=== PATIENT | male | born 1995 | race Caucasian/White ===

== ENCOUNTER 2019-01-04 13:15 | Emergency (ER) | payer OTHER ==
--- NOTE | 2019-01-04 13:59 | C.PDOC ---
History Of Present Illness 23 y/o male, otherwise well, presents to the ED with complaints of intermittent diffuse abdominal pain for 2 weeks, worse over this weekend. He denies any associated diarrhea, dysuria, fever, chills, neck pain, chest pain, or SOB. Patient does report mild headache and nausea, with no vomiting. He also complains of straining when moving his bowels. Time Seen by Provider: 01/04/19 13:44 Chief Complaint (Nursing): Abdominal Pain History Per: Patient History/Exam Limitations: no limitations Onset/Duration Of Symptoms: Intermittent Episodes Current Symptoms Are (Timing): Still Present Location Of Pain/Discomfort: Diffuse Quality Of Discomfort: "Pain" Associated Symptoms: Nausea Past Medical History Reviewed: Historical Data, Nursing Documentation, Vital Signs Vital Signs: Last Vital Signs Temp 97.8 F 01/04/19 13:21 Pulse 115 H 01/04/19 13:21 Resp 18 01/04/19 13:21 BP 116/77 01/04/19 13:21 Pulse Ox 95 01/04/19 13:21 - Medical History PMH: No Chronic Diseases Surgical History: No Surg Hx Family History: States: Unknown Family Hx - Social History Hx Tobacco Use: No Hx Alcohol Use: No Hx Substance Use: No - Immunization History Hx Tetanus Toxoid Vaccination: No Hx Influenza Vaccination: No Hx Pneumococcal Vaccination: No Review Of Systems Except As Marked, All Systems Reviewed And Found Negative. Constitutional: Negative for: Fever, Chills Cardiovascular: Negative for: Chest Pain Respiratory: Negative for: Shortness of Breath Gastrointestinal: Positive for: Nausea, Abdominal Pain, Constipation. Negative for: Vomiting, Diarrhea Genitourinary: Negative for: Dysuria, Hematuria Musculoskeletal: Negative for: Neck Pain, Back Pain Neurological: Positive for: Headache. Negative for: Weakness, Dizziness Physical Exam - Physical Exam Appears: Non-toxic, No Acute Distress, Other (Awake, Alert, Cooperative) Skin: Warm, Dry, No Rash Head: Atraumatic, Normacephalic Eye(s): bilateral: Normal Inspection, PERRL, EOMI Oral Mucosa: Moist Neck: Normal ROM, Supple Chest: Symmetrical Cardiovascular: Rhythm Regular, No Murmur Respiratory: Normal Breath Sounds, No Accessory Muscle Use Gastrointestinal/Abdominal: Soft, Tenderness (diffuse tenderness), No Distention, No Guarding, No Rebound Back: CVA Tenderness (mild B/L CVA tenderness, right > left), No Vertebral Tenderness Extremity: Bilateral: Atraumatic, Normal Color And Temperature Pulses: Left Radial: Normal, Right Radial: Normal Neurological/Psych: Oriented x3, Normal Speech ED Course And Treatment O2 Sat by Pulse Oximetry: 95 (RA) Pulse Ox Interpretation: Normal - Other Rad Obstructive Series XR X-Ray: Read By Radiologist Interpretation: Accession No. : [id number]. Patient Name / ID : PRINCESS COSTA / [id number]. Exam Date : 01/04/2019 15:04:08 ( Approved ). Study Comment : Sex / Age : M / 23Y. Creator : Sonja Elliott MD. Dictator : Sonja Elliott MD. Lens Silverer : Inspector Line : Sonja Elliott MD. Approver2 : Report Date : 01/04/2019 15:49:40. My Comment : . Date of service: 01/04/2019. PROCEDURE: Radiographs of the chest and abdomen (obstructive series). HISTORY: pain X 2 weeks. COMPARISON: No prior. TECHNIQUE: AP radiograph of the chest, with upright and supine radiographs of the abdomen. FINDINGS: CHEST: Lungs: The lungs are well inflated and clear. Cardiovascular: Normal size heart. No pulmonary vascular congestion. No aortic atherosclerotic calcification present. Pleura: No pleural fluid. No pneumothorax. Other findings: None. ABDOMEN AND PELVIS: Bowel: There is moderate amount of stool in the colon and large amount of stool in the rectum. Bowel gas pattern is non obstructive. Free air: None. Bones: Unremarkable. Other findings: None. IMPRESSION: Constipation. Nonobstructive bowel gas pattern. Clear lungs. Medical Decision Making Medical Decision Making: Impression: Abdominal pain, Nausea, Constipation Initial Plan: - Labs - Obstructive series x-ray - 1 L IV fluids - 4 mg IV zofran - 20 mg IV pepcid - 30 ml PO maalox - 1 tab PO - Reassess Progress: Labs reviewed. Imaging shows constipation. Patient counseled regarding results and plan for discharge home. Disposition - Disposition Disposition: HOME/ ROUTINE Disposition Time: 16:45 Condition: STABLE Prescriptions: Phosphate Enema [Fleet Enema] 266 ml RC DAILY #2 nma Polyethylene Glycol 3350 [Miralax] 17 gm PO DAILY PRN #170 gm PRN Reason: Constipation Wheat Dextrin [Benefiber] 1 each PO DAILY #30 powd.pack Instructions: Constipation, Adult (DC) Forms: Gen Discharge Inst Grenadian, [employer] [facility] (Grenadian), Work Excuse - POA Present On Arrival: None - Clinical Impression Clinical Impression: Abdominal pain, Constipation - Scribe Statement The provider has reviewed the documentation as recorded by the Binh Rodriguez Provider Attestation: All medical record entries made by the Binh were at my direction and personally dictated by me. I have reviewed the chart and agree that the record accurately reflects my personal performance of the history, physical exam, medical decision making, and the department course for this patient. I have also personally directed, reviewed, and agree with the discharge instructions and disposition.
[2019-01-04] MEDS ORDERED: Belladonna-Phenobarbital PO STA (14:41)
[2019-01-04] MEDS ORDERED: Aluminum Hydroxide/Magnesium Hydroxide Susp (30 mL) PO STA (14:41)
[2019-01-04] MEDS ORDERED: Sodium Chloride 0.9% 1,000 ML IV ONE (14:41)
[2019-01-04] MEDS ORDERED: Belladonna-Phenobarbital ONE (15:12)
[2019-01-04] MEDS ORDERED: Aluminum Hydroxide/Magnesium Hydroxide Susp (30 mL) ONE (15:13)
[2019-01-04] MEDS ORDERED: Sodium Chloride 0.9% 1,000 ML ONE (15:13)
[2019-01-04 15:49] LABS: BARBITURATES, UR NEGATIVE (NEGATIVE); BENZODIAZEPINES, UR NEGATIVE (NEGATIVE); OPIATES, UR NEGATIVE (NEGATIVE); PHENCYCLIDINE, UR NEGATIVE (NEGATIVE)
[2019-01-04 15:50] LABS: URINE BILIRUBIN NEGATIVE (NEGATIVE); URINE BLOOD NEGATIVE (NEGATIVE); URINE CLARITY Hazy (Clear); URINE COLOR Yellow (YELLOW); URINE GLUCOSE (UA) NORMAL (Normal); URINE LEUKOCYTE ESTERASE NEG Leu/uL (Negative); URINE PROTEIN NEGATIVE (NEGATIVE); URINE UROBILINOGEN NORMAL mg/dL (0.2-1.0)
--- NOTE | 2019-01-04 15:53 | RAD ---
Date of service: 01/04/2019 PROCEDURE: Radiographs of the chest and abdomen (obstructive series) HISTORY: pain X 2 weeks COMPARISON: No prior. TECHNIQUE: AP radiograph of the chest, with upright and supine radiographs of the abdomen. FINDINGS: CHEST: Lungs: The lungs are well inflated and clear. Cardiovascular: Normal size heart. No pulmonary vascular congestion. No aortic atherosclerotic calcification present Pleura: No pleural fluid. No pneumothorax. Other findings: None. ABDOMEN AND PELVIS: Bowel: There is moderate amount of stool in the colon and large amount of stool in the rectum. Bowel gas pattern is non obstructive. Free air: None. Bones: Unremarkable. Other findings: None. IMPRESSION: Constipation. Nonobstructive bowel gas pattern. Clear lungs.
[2019-01-04 17:23] VITALS: BP 112/69; PULSE 81; RESP 19; TEMP 98.3; O2SAT 99
== END 2019-01-04 17:38 | disposition home or self-care (01) ==
LOC: C.ER 13:15 → UNDOADMOB 15:28 → C.9E 15:28 → C.ER 17:38
DX: K59.00 Constipation, unspecified (principal); R10.9 Unspecified abdominal pain
CPT/HCPCS: 74022; 80324; 80345; 80346; 80349; 80353; 80358; 80361; 81001; 83992; 96361; 96374; 96375; 99284; J2405; J7030

== ENCOUNTER 2019-02-27 19:37 | Emergency (ER) | payer OTHER ==
[2019-02-27 19:45] VITALS: BP 141/82; PULSE 90; RESP 16; TEMP 97.8; O2SAT 98
[2019-02-27] MEDS ORDERED: Lidocaine 5% Patch TD ONE (19:58)
[2019-02-27] MEDS ORDERED: Lidocaine 5% Patch TD STA (20:12)
--- NOTE | 2019-02-27 20:25 | C.PDOC ---
History Of Present Illness 24 year old male presents to the ED complaining of intermittent left sided lower rib pain for the past 2 weeks. States pain was exacerbated today by heavy lifting. 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 Denies taking any oral pain medications because he prefers not to. Denies any trauma, injuries, chest pain, shortness of breath, nausea, vomiting, or urinary complaints. Time Seen by Provider: 02/27/19 19:44 Chief Complaint (Nursing): Rib Injury History Per: Patient History/Exam Limitations: no limitations Onset/Duration Of Symptoms: Days Current Symptoms Are (Timing): Still Present Past Medical History Reviewed: Historical Data, Nursing Documentation, Vital Signs Vital Signs: Last Vital Signs Temp 97.8 F 02/27/19 19:41 Pulse 90 02/27/19 19:41 Resp 16 02/27/19 19:41 BP 141/82 02/27/19 19:41 Pulse Ox 98 02/27/19 19:41 - Medical History PMH: No Chronic Diseases Surgical History: No Surg Hx Family History: States: No Known Family Hx - Social History Hx Tobacco Use: No Hx Alcohol Use: No Hx Substance Use: No - Immunization History Hx Tetanus Toxoid Vaccination: No Hx Influenza Vaccination: No Hx Pneumococcal Vaccination: No Review Of Systems Constitutional: Negative for: Fever, Chills, Weakness Cardiovascular: Negative for: Chest Pain Respiratory: Negative for: Shortness of Breath Gastrointestinal: Negative for: Nausea, Vomiting, Abdominal Pain Genitourinary: Negative for: Dysuria, Hematuria Musculoskeletal: Positive for: Other (left sided lower rib pain ) Skin: Negative for: Rash Neurological: Negative for: Headache, Dizziness Physical Exam - Physical Exam Appears: Well, Non-toxic, No Acute Distress Skin: Warm, Dry, No Rash Head: Atraumatic, Normacephalic Eye(s): bilateral: Normal Inspection Nose: Normal Oral Mucosa: Moist Neck: Supple Chest: Symmetrical, Tenderness (tenderness to palpation between 10-11th ribs on the left side), No Ecchymosis Cardiovascular: Rhythm Regular Respiratory: Normal Breath Sounds, No Rales, No Rhonchi, No Wheezing Gastrointestinal/Abdominal: Soft, No Tenderness Back: No CVA Tenderness Extremity: Bilateral: Atraumatic Neurological/Psych: Oriented x3, Normal Speech, Normal Motor, Normal Sensation Gait: Steady ED Course And Treatment O2 Sat by Pulse Oximetry: 98 (RA) Pulse Ox Interpretation: Normal Medical Decision Making Medical Decision Making: Plan - Lidoderm patch TD On reassessment, patient is resting comfortably, and is in no acute distress. Patient was instructed to follow up with physician/clinic in 1-2 days for further evaluation. Disposition Counseled Patient/Family Regarding: Diagnosis, Need For Followup, Rx Given - Disposition Referrals: [facility] [Outside] Jose Ken MD [Staff Provider] - Disposition: HOME/ ROUTINE Disposition Time: 20:29 Condition: IMPROVED Additional Instructions: Apply Lidoderom patch to affected area as needed for pain If pain worsen, start Naproxen twice a day as needed for pain Avoid lifting/strenous activity Follow up with PMD if symptoms persists Return to the ED if symptoms worsen Prescriptions: Lidocaine 5% [Lidoderm] 1 patch TOP DAILY PRN #30 patch PRN Reason: Pain, Moderate (4-7) Naproxen [Naprosyn] 500 mg PO BID #30 tablet Instructions: Costochondritis (DC) Forms: [employer] (Khmer) Print Language: ROMANSH - Clinical Impression Clinical Impression: Costochondritis, Rib pain on left side - PA / HOUSEKEEPING ASSOCIATE / Resident Statement MD/DO has reviewed & agrees with the documentation as recorded. - Scribe Statement The provider has reviewed the documentation as recorded by the Scribroberto Morales All medical record entries made by the Sarahibroberto were at my direction and personally dictated by me. I have reviewed the chart and agree that the record accurately reflects my personal performance of the history, physical exam, medical decision making, and the department course for this patient. I have also personally directed, reviewed, and agree with the discharge instructions and disposition.
[2019-02-28] MEDS ORDERED: Lidocaine 5% Patch TD SCH (10:00)
== END 2019-02-27 20:34 | disposition home or self-care (01) ==
LOC: C.ER 19:37
DX: M94.0 Chondrocostal junction syndrome [Tietze] (principal); R07.81 Pleurodynia